=== PATIENT | female | born 1950 | race Caucasian/White ===

== ENCOUNTER → 2016-03-18 | Outpatient (CLI) | payer MEDICARE ==
--- NOTE | 2016-03-18 15:58 | CT ---
EXAM DESCRIPTION: CT ABDOMEN WITHOUT THEN WITH IV CONTRAST CLINICAL HISTORY: 65 y/o F, CIRRHOSIS COMPARISON: None TECHNIQUE: Prior to and after the administration of IV contrast thin slice axial images were acquired of the abdomen and pelvis. FINDINGS: Splenomegaly noted. The spleen measures 16 cm in diameter. The liver is shrunken with a nodular surface compatible with cirrhosis. Arterial phase images demonstrate no abnormal enhancement of the liver to suggest hepatocellular carcinoma. The bilateral adrenal glands, pancreas are unremarkable. Two 1 mm right lower pole renal stones. Negative for obstruction. Bilateral kidneys enhance symmetrically. There is a moderate amount of ascites noted. IVC filter in place. No aneurysm of the abdominal aorta. There are 2 anterior abdominal wall hernias seen. One contains only ascites. The more median of the 2 hernias contains both fluid, mesenteric fat and the lateral vessels from portal hypertension. IMPRESSION: There is a shrunken nodular liver compatible with cirrhosis. The spleen is enlarged with multiple collateral vessels. These findings are compatible with portal hypertension. There is a partial thrombus seen within the portal vein with thrombus extending into the SMV. This may be the cause of patient's ascites. Two small nonobstructing right lower pole renal stones. Electronically signed by: Bryant Kwon MD 03/18/2016 15:57
== END ==
LOC: LAB.O 10:23
PROVIDERS: ATTEND Internal Medicine Gastroenterology
DX: K74.69 Other cirrhosis of liver (principal); R16.1 Splenomegaly, not elsewhere classified; N20.0 Calculus of kidney

== ENCOUNTER → 2016-06-22 | Outpatient (CLI) | payer MEDICARE | LOC: GMAB 16:38 | PROVIDERS: ATTEND Family Medicine | DX: F44.89 Other dissociative and conversion disorders (principal); E11.40 Type 2 diabetes mellitus with diabetic neuropathy, unspecified; R53.82 Chronic fatigue, unspecified ==

== ENCOUNTER → 2017-06-21 | Outpatient (CLI) | payer MEDICARE | LOC: GMAB 10:23 | PROVIDERS: ATTEND Family Medicine | DX: R18.8 Other ascites (principal); E11.40 Type 2 diabetes mellitus with diabetic neuropathy, unspecified ==

== ENCOUNTER → 2017-07-04 | Outpatient (CLI) | payer MEDICARE ==
--- NOTE | 2017-07-04 13:36 | US ---
EXAM DESCRIPTION: Venous,Lower Extremity LT CLINICAL HISTORY: EDEMA COMPARISON: None Available. TECHNIQUE: Left lower extremity venous duplex FINDINGS: Doppler evaluation of the left lower extremity deep veins was performed. Normal color flow is seen in the common femoral, superficial femoral, profunda femoral and greater saphenous veins. Normal flow is seen in the popliteal vein and veins below the knee in the calf. Normal venous compressibility and flow augmentation. IMPRESSION: Negative for evidence of deep venous thrombosis on left lower extremity venous Doppler sonogram. Electronically signed by: Milton Crystal MD 07/04/2017 1:35 PM CDT
== END ==
LOC: GMAB 11:33
PROVIDERS: ATTEND Family Medicine
DX: M79.661 Pain in right lower leg (principal); R60.0 Localized edema

== ENCOUNTER 2017-07-11 15:49 | Emergency (ER) | payer MEDICARE ==
--- NOTE | 2017-07-11 16:23 | ED.PDOC ---
History of Present Illness - General Chief Complaint: Abdominal Pain Stated Complaint: abdominal pain Time Seen by Provider: 07/11/17 16:19 Source: patient Exam Limitations: no limitations - History of Present Illness Initial Comments: the patient is a 67-year-old female presenting to the emergency room with her family secondary to increasing swelling of her lower extremities as well as her abdomen. The patient does take significant daily doses of diuretics. She also goes to get ascites removed every 2 weeks in [place]. She takes lactulose to bring her ammonia down. She is not really complaining of any pain other than at the site of her last paracentesis. The pain is milder. She is not more altered than normal. She is not really more short of breath at rest than normal. She has not been having any fevers. No chest pain. No nausea or vomiting. No diarrheaaside from when she takeslactulose. blood pressure here today is a little bit lower than her baselinebut she does normally run low normal. Timing/Duration: unsure Severity: moderate Improving Factors: nothing Worsening Factors: nothing Associated Symptoms: denies symptoms Allergies/Adverse Reactions: Allergies NO KNOWN ALLERGY Allergy (Verified 01/08/15 20:25) Home Medications: Ambulatory Orders Aspirin Adult Low Dose 81 mg PO DAILY 01/08/15 Calcium 500 mg PO BID 01/08/15 Citalopram Hydrobromide 20 mg PO DAILY 01/08/15 Humalog 14 units SUBCU TID 01/08/15 Lantus Solostar 10 units SUBCU DAILY 01/08/15 Lasix 40 mg PO DAILY 01/08/15 Myrbetriq 25 mg PO DAILY 01/08/15 Nadolol 20 mg PO DAILY 01/08/15 Rifaximin 550 mg PO BID 01/08/15 Spironolactone 100 mg PO DAILY 01/08/15 Tolterodine LA 4 mg PO DAILY 01/08/15 Vitamin A 8,000 mg PO DAILY 01/08/15 Vitamin D-3 7,000 mg PO DAILY 01/08/15 Zinc Sulfate 220 mg PO DAILY 01/08/15 Review of Systems - Review of Systems Constitutional: States: malaise EENTM: States: no symptoms reported Respiratory: States: no symptoms reported Cardiology: States: no symptoms reported Gastrointestinal/Abdominal: States: abdominal pain - at site of previous paracentesis only. No generalized peritonitis palpable. Musculoskeletal: States: no symptoms reported Skin: States: no symptoms reported Neurological: States: no symptoms reported Endocrine: States: no symptoms reported Hematologic/Lymphatic: States: no symptoms reported All other Systems: No Change from Baseline Past Medical History (General) - Patient Medical History Hx Stroke: Yes Hx Cardiac Disorders: Yes Hx Diabetes: Yes Hx Renal Disease: Yes - Vaccination History Hx Tetanus, Diphtheria Vaccination: Yes Hx Influenza Vaccination: Yes Hx Pneumococcal Vaccination: No - Social History Hx Tobacco Use: No Hx Chewing Tobacco Use: No Hx Alcohol Use: No Hx Substance Use: No Hx Substance Use Treatment: No Hx Depression: No Hx Physical Abuse: No Hx Emotional Abuse: No Hx Suspected Abuse: No - Female History Patient : No Family Medical History - Family History Mother Family History: Unknown Physical Exam - Physical Exam General Appearance: Alert, Comfortable Eye Exam: bilateral normal Ears, Nose, Throat: hearing grossly normal, normal ENT inspection, normal pharynx Neck: full range of motion, supple Respiratory: lungs clear, normal breath sounds, no respiratory distress, no accessory muscle use Cardiovascular/Chest: normal peripheral pulses, no edema, bradycardia Peripheral Pulses: radial,right: 2+, radial,left: 2+, dorsalis pedis,right: 2+, dorsalis pedis,left: 2+ Gastrointestinal/Abdominal: non tender - see above. She does have significant ascites., soft Rectal Exam: deferred Back Exam: normal inspection, no CVA tenderness, no vertebral tenderness Extremity: normal range of motion, no calf tenderness, normal capillary refill, pedal edema - 3+ pedal edema bilaterally. No palpable cords. 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 She has become weaker. No fevers. No real generalized abdominal pain only discomfort at the previous paracentesis site. No significant jaundice. She has been urinating well according to her and family. She has been having bowel movements. Blood pressures are low normal here today but according to family that is what they normally are. Her primary care doctor had recently increased her diuretic but to no relief. Workup here today is concerning primarily for what appears to be acute renal failure in spite of significantly increasing anasarca. We have as of yet been unable to obtain a urinalysis to help rule out infection of the urinary tract as she missed the bed [place] the first time around. Blood culture has been performed. Also of concern is the elevated d-dimer in this patient. Abdominal paracentesis has not been performed for microbiology as we do not have microbiology in-house at this facility, and performing one simply for a culture may mess up the microbiology when she arrives at the receiving facility. She'll need to have a paracentesis diagnostic and likely therapeutic upon her arrival at the receiving facility. Additionally she will need additional imaging of the liver to help rule out portal vein thrombosis. She cannot have a CT scan with contrast given the acute renal failure and we do not have ultrasound here. The patient is being dosed empirically for the possibility of spontaneous bacterial peritonitis with a dose of cefepime. has graciously accepted the patient for transfer to [facility] in [place] for continued directed and appropriate evaluation and treatment. The patient will be sent by ambulance. The patient does have some mildly elevated potassium and is receiving a dose of Kayexalate as well. Ammonia level is a send out lab here and it is still pending. - Results/Orders Results/Orders: EKG shows sinus bradycardia rate of 52 bpm. She does have a supraventricular bigeminy pattern is slow. No acute ST segment changes concerning for ischemia. Normal QT interval. acute abdominal series shows no acute pathology. Laboratory Tests 07/11/17 07/11/17 07/11/17 14:42 14:42 16:31 WBC 3.1 L RBC 3.91 L Hgb 11.8 L Hct 35.3 L MCV 90.2 MCH 30.1 MCHC 33.4 RDW 15.3 H Plt Count 74 L MPV 10.1 Absolute Neuts (auto) 2.20 Absolute Lymphs (auto) 0.50 L Absolute Monos (auto) 0.30 Absolute Eos (auto) 0.10 Absolute Basos (auto) 0.00 Neutrophils % 71.5 Lymphocytes % 14.6 L Monocytes % 10.0 H Eosinophils % 3.5 Basophils % 0.4 PT 13.2 H INR 1.140 PTT (SP) 40.2 H D-Dimer, Quantitative 2347 H* Sodium 136 Potassium 6.1 H Chloride 101 Carbon Dioxide 28 Anion Gap 13.1 BUN 42 H Creatinine 2.68 H BUN/Creatinine Ratio 15.7 Random Glucose 150 H Serum Osmolality 285.3 Lactic Acid Calcium 9.9 Magnesium 2.3 Total Bilirubin 1.5 H AST 30 ALT 10 Alkaline Phosphatase 81 Creatine Kinase 46 CK-MB (CK-2) 0.8 CK-MB (CK-2) % Not Reportable Troponin I < 0.02 B-Natriuretic Peptide 249.0 H* Serum Total Protein 6.2 L Albumin 2.8 L Globulin 3.4 Albumin/Globulin Ratio 0.8 L 07/11/17 16:42 WBC RBC Hgb Hct MCV MCH MCHC RDW Plt Count MPV Absolute Neuts (auto) Absolute Lymphs (auto) Absolute Monos (auto) Absolute Eos (auto) Absolute Basos (auto) Neutrophils % Lymphocytes % Monocytes % Eosinophils % Basophils % PT INR PTT (SP) D-Dimer, Quantitative Sodium Potassium Chloride Carbon Dioxide Anion Gap BUN Creatinine BUN/Creatinine Ratio Random Glucose Serum Osmolality Lactic Acid 1.5 Calcium Magnesium Total Bilirubin AST ALT Alkaline Phosphatase Creatine Kinase CK-MB (CK-2) CK-MB (CK-2) % Troponin I B-Natriuretic Peptide Serum Total Protein Albumin Globulin Albumin/Globulin Ratio blood culture has been performed. Departure - Departure Clinical Impression: Anasarca, Hyperkalemia, End stage liver disease Acute renal failure Qualifiers: Acute renal failure type: unspecified Qualified Code(s): N17.9 - Acute kidney failure, unspecified Disposition: Transfer to Hospital Condition: Serious Referrals: Jose Al MD [Primary Care Provider] - 1-2 Weeks Home Medications: Ambulatory Orders Aspirin Adult Low Dose 81 mg PO DAILY 01/08/15 Calcium 500 mg PO BID 01/08/15 Citalopram Hydrobromide 20 mg PO DAILY 01/08/15 Humalog 14 units SUBCU TID 01/08/15 Lantus Solostar 10 units SUBCU DAILY 01/08/15 Lasix 40 mg PO DAILY 01/08/15 Myrbetriq 25 mg PO DAILY 01/08/15 Nadolol 20 mg PO DAILY 01/08/15 Rifaximin 550 mg PO BID 01/08/15 Spironolactone 100 mg PO DAILY 01/08/15 Tolterodine LA 4 mg PO DAILY 01/08/15 Vitamin A 8,000 mg PO DAILY 01/08/15 Vitamin D-3 7,000 mg PO DAILY 01/08/15 Zinc Sulfate 220 mg PO DAILY 01/08/15 Transfer to Outside Facility - Transfer Information Accepting Provider:: dr beasley Accepting Facility: [facility] Reason for Transfer: required specialist not available
--- NOTE | 2017-07-11 16:49 | RAD ---
EXAM DESCRIPTION: Abdomen Series CLINICAL HISTORY: edema. Cirrhosis COMPARISON: CT abdomen 03/18/2016. TECHNIQUE: AP radiographs of the abdomen supine upright. Upright AP portable chest. FINDINGS: Scar in the left base. No acute infiltrate and no pleural effusion. No free air under the hemidiaphragms. No significant air-fluid levels. Fecal material and gas in the distal colon with gas in the proximal colon. Minimal gas in the distal small bowel. No distended loops. Surgical clips right upper quadrant. Left hip total arthroplasty. Decreased bone density and spondylosis in the lumbar spine. IMPRESSION: No radiographic evidence of acute abdominal bowel obstruction. No free air or air-fluid levels. No acute process in the lung bases. Electronically signed by: Woody Mack MD 07/11/2017 4:47 PM CDT
[2017-07-11] MEDS ORDERED: SOD POLYSTYRENE SULFONATE 15 GM/60 ML BTTL PO ONE (17:24)
[2017-07-11] MEDS ORDERED: CEFEPIME 1 GM in SODIUM CHLORIDE 0.9% 50ML 50 ML IVPB ONE (18:22)
[2017-07-11] MEDS ORDERED: CEFEPIME 2 GM VIAL IVPB ONE ×2 (18:42→18:51)
[2017-07-11] MEDS ORDERED: SODIUM CHLORIDE 0.9% 50ML 50 ML ONE ×2 (18:42→18:52)
[2017-07-11 19:32] VITALS: BP 115/60; TEMP 98.4; O2SAT 96
== END 2017-07-11 19:31 | disposition short-term general hospital (02) ==
LOC: ER 15:49
DX: K72.90 Hepatic failure, unspecified without coma (principal); E87.5 Hyperkalemia; N17.9 Acute kidney failure, unspecified; R60.1 Generalized edema; E11.9 Type 2 diabetes mellitus without complications; Z86.73 Personal history of transient ischemic attack (TIA), and cerebral infarction without residual deficits; Z79.4 Long term (current) use of insulin; Z79.82 Long term (current) use of aspirin
CPT/HCPCS: 74019; 80053; 81001; 82550; 82553; 83605; 83735; 83880; 84484; 85025; 85379; 85610; 85730; 87040; 93005; A4216; J0692

== ENCOUNTER 2017-09-05 18:39 | Emergency (ER) | payer MEDICARE ==
--- NOTE | 2017-09-05 20:01 | ED.PDOC ---
History of Present Illness - General Chief Complaint: Abdominal Pain Stated Complaint: right sided abdominal pain Time Seen by Provider: 09/05/17 18:53 Source: patient Exam Limitations: no limitations - History of Present Illness Initial Comments: The patient is a 67-year-old female presenting to the emergency room secondary to right-sided abdominal pain that has been present for more than 2 weeks. The patient had a fall about 3 weeks ago and she has had the pain since. The pain is fairly localized to approximately a 2 in. area to the right upper anterior abdomen. There is no obvious bruising. It is tender to palpation but the areas immediately adjacent to it or not. She does have some bruising on her back from the fall as well but she is not so sore there. No nausea vomiting. No evidence of any infection. Her fluid status is baseline for her. No altered mental status. She is alert and pleasant and cooperative and in no immediate distress.no palpable mass. Timing/Duration: unsure Severity: mild Improving Factors: nothing Worsening Factors: movement Associated Symptoms: denies symptoms Allergies/Adverse Reactions: Allergies NO KNOWN ALLERGY Allergy (Verified 01/08/15 20:25) Home Medications: Ambulatory Orders Aspirin Adult Low Dose 81 mg PO DAILY 01/08/15 Calcium 500 mg PO BID 01/08/15 Citalopram Hydrobromide 20 mg PO DAILY 01/08/15 Humalog 14 units SUBCU TID 01/08/15 Lantus Solostar 10 units SUBCU DAILY 01/08/15 Lasix 40 mg PO DAILY 01/08/15 Myrbetriq 25 mg PO DAILY 01/08/15 Nadolol 20 mg PO DAILY 01/08/15 Rifaximin 550 mg PO BID 01/08/15 Spironolactone 100 mg PO DAILY 01/08/15 Tolterodine LA 4 mg PO DAILY 01/08/15 Vitamin A 8,000 mg PO DAILY 01/08/15 Vitamin D-3 7,000 mg PO DAILY 01/08/15 Zinc Sulfate 220 mg PO DAILY 01/08/15 Review of Systems - Review of Systems Constitutional: States: no symptoms reported EENTM: States: no symptoms reported Respiratory: States: no symptoms reported Cardiology: States: no symptoms reported Gastrointestinal/Abdominal: States: no symptoms reported, see HPI Genitourinary: States: no symptoms reported Musculoskeletal: States: see HPI Skin: States: see HPI Neurological: States: no symptoms reported Endocrine: States: no symptoms reported All other Systems: No Change from Baseline Past Medical History (General) - Patient Medical History Hx Stroke: Yes Hx Cardiac Disorders: Yes Hx Diabetes: Yes Hx Renal Disease: Yes - Vaccination History Hx Tetanus, Diphtheria Vaccination: Yes Hx Influenza Vaccination: Yes Hx Pneumococcal Vaccination: No - Social History Hx Tobacco Use: No Hx Chewing Tobacco Use: No Hx Alcohol Use: No Hx Substance Use: No Hx Substance Use Treatment: No Hx Depression: No Hx Physical Abuse: No Hx Emotional Abuse: No Hx Suspected Abuse: No - Female History Patient : No Family Medical History - Family History Mother Family History: Unknown Physical Exam - Physical Exam General Appearance: Alert, Comfortable, No apparent distress Eye Exam: bilateral normal Ears, Nose, Throat: hearing grossly normal, normal ENT inspection, normal pharynx Neck: full range of motion, supple, normal inspection Respiratory: lungs clear, normal breath sounds, no respiratory distress, no accessory muscle use Cardiovascular/Chest: normal peripheral pulses, regular rate, rhythm Peripheral Pulses: radial,right: 2+, radial,left: 2+, dorsalis pedis,right: 2+, dorsalis pedis,left: 2+ Gastrointestinal/Abdominal: soft, other - see history of present illness. Mild amount of ascites is obviously present. Rectal Exam: deferred Back Exam: no CVA tenderness, other - bruising from the fall. 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 This is most likely a muscle strain related to her recent fall. Laboratory work is reassuring. The patient looks good clinically. 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 ER warnings were given. - Results/Orders Results/Orders: Laboratory Tests 09/05/17 09/05/17 09/05/17 19:17 19:17 19:17 WBC 1.7 L* RBC 3.26 L Hgb 9.7 L Hct 29.1 L MCV 89.3 MCH 29.7 MCHC 33.5 RDW 17.2 H Plt Count 66 L MPV 8.2 Absolute Neuts (auto) 1.10 L Absolute Lymphs (auto) 0.30 L Absolute Monos (auto) 0.30 Absolute Eos (auto) 0.10 Absolute Basos (auto) 0.00 Neutrophils % 64.7 Lymphocytes % 15.7 L Monocytes % 15.4 H Eosinophils % 3.7 Basophils % 0.5 Sodium 136 Potassium 4.3 Chloride 102 Carbon Dioxide 26 Anion Gap 12.3 BUN 26 H Creatinine 1.31 H BUN/Creatinine Ratio 19.8 Random Glucose 81 Serum Osmolality 275.7 Lactic Acid 1.8 Calcium 9.5 Total Bilirubin 1.9 H AST 34 ALT 14 Alkaline Phosphatase 75 Serum Total Protein 6.7 Albumin 3.5 Globulin 3.2 Albumin/Globulin Ratio 1.1 Amylase 34 Lipase 20 L Urine Color Urine Appearance Urine pH Ur Specific [place] Urine Protein Urine Glucose (UA) Urine Ketones Urine Blood Urine Nitrite Urine Bilirubin Urine Urobilinogen Ur Leukocyte Esterase Urine RBC Urine WBC Ur Epithelial Cells Amorphous Sediment Urine Bacteria 09/05/17 19:26 WBC RBC Hgb Hct MCV MCH MCHC RDW Plt Count MPV Absolute Neuts (auto) Absolute Lymphs (auto) Absolute Monos (auto) Absolute Eos (auto) Absolute Basos (auto) Neutrophils % Lymphocytes % Monocytes % Eosinophils % Basophils % Sodium Potassium Chloride Carbon Dioxide Anion Gap BUN Creatinine BUN/Creatinine Ratio Random Glucose Serum Osmolality Lactic Acid Calcium Total Bilirubin AST ALT Alkaline Phosphatase Serum Total Protein Albumin Globulin Albumin/Globulin Ratio Amylase Lipase Urine Color Yellow Urine Appearance Clear Urine pH 5.0 Ur Specific [place] 1.020 Urine Protein Negative Urine Glucose (UA) Negative Urine Ketones Negative Urine Blood Negative Urine Nitrite Negative Urine Bilirubin Negative Urine Urobilinogen 0.2 Ur Leukocyte Esterase Negative Urine RBC 0-1 Urine WBC 0-1 Ur Epithelial Cells 1-3 Amorphous Sediment 1+ Urine Bacteria 0 Departure - Departure Clinical Impression: Abdominal wall strain Qualifiers: Encounter type: initial encounter Qualified Code(s): S39.011A - Strain of muscle, fascia and tendon of abdomen, initial encounter Disposition: Discharge to Home or Self Care Departure Forms: ED Discharge - Pt. Copy, Patient Portal Self Enrollment Instructions: DI for Abdominal Pain-Adult Diet: regular diet Activity: increase activity as tolerated Referrals: KAIT LORENZO MD [Primary Care Provider] - 1-2 Weeks Home Medications: Ambulatory Orders Aspirin Adult Low Dose 81 mg PO DAILY 01/08/15 Calcium 500 mg PO BID 01/08/15 Citalopram Hydrobromide 20 mg PO DAILY 01/08/15 Humalog 14 units SUBCU TID 01/08/15 Lantus Solostar 10 units SUBCU DAILY 01/08/15 Lasix 40 mg PO DAILY 01/08/15 Myrbetriq 25 mg PO DAILY 01/08/15 Nadolol 20 mg PO DAILY 01/08/15 Rifaximin 550 mg PO BID 01/08/15 Spironolactone 100 mg PO DAILY 01/08/15 Tolterodine LA 4 mg PO DAILY 01/08/15 Vitamin A 8,000 mg PO DAILY 01/08/15 Vitamin D-3 7,000 mg PO DAILY 01/08/15 Zinc Sulfate 220 mg PO DAILY 01/08/15 Additional Instructions: the patient is a 67-year-old female presenting to the emergency room secondary to persistent mild right anterior upper abdominal wall pain present for the last couple of weeks. This is most likely a muscle strain related to her recent fall. Laboratory work is reassuring. The patient looks good clinically. 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 ER warnings were given.
[2017-09-05 20:23] VITALS: BP 124/73; TEMP 97.4; O2SAT 95
== END 2017-09-05 20:23 | disposition home or self-care (01) ==
LOC: ER 18:39
DX: S39.011A Strain of muscle, fascia and tendon of abdomen, initial encounter (principal); E11.9 Type 2 diabetes mellitus without complications; Z86.73 Personal history of transient ischemic attack (TIA), and cerebral infarction without residual deficits; N28.9 Disorder of kidney and ureter, unspecified; Z79.4 Long term (current) use of insulin; Z79.82 Long term (current) use of aspirin; Z79.899 Other long term (current) drug therapy

== ENCOUNTER 2017-09-15 23:58 | Emergency (ER) | payer MEDICARE ==
[2017-09-16 00:26] VITALS: TEMP 98.6; O2SAT 98
[2017-09-16] MEDS ORDERED: traMADol HCL 50 MG TAB PO ONE ×2 (00:27→00:29)
[2017-09-16] MEDS ORDERED: FUROSEMIDE 40 MG TAB PO ONE ×2 (00:27→00:30)
--- NOTE | 2017-09-16 00:33 | ED.PDOC ---
History of Present Illness - General Chief Complaint: GI Problem Stated Complaint: upper abd pain Time Seen by Provider: 09/16/17 00:29 Information Source: patient Exam Limitations: no limitations - History of Present Illness Initial Comments: SHE HAS ASCITES AND FEELS SHORT OF BREATH. USUALLY GOES TO [facility] TO HAVE THE ASCITES DRAINED EVERY TWO WEEKS, SHE IS DUE TUESDAY BUT NOW FEELS TIGHT. Abdominal Pain Onset Location: generalized abdomen Pain Radiation: no radiation Quality: moderate Timing/Duration: 24 hours Improving Factors: nothing Worsening Factors: nothing Associated Symptoms: denies symptoms Review of Systems - Review of Systems Constitutional: States: no symptoms reported EENTM: States: no symptoms reported Respiratory: States: no symptoms reported Cardiology: States: no symptoms reported Gastrointestinal/Abdominal: States: abdominal pain Genitourinary: States: no symptoms reported Musculoskeletal: States: no symptoms reported Skin: States: no symptoms reported Neurological: States: no symptoms reported Endocrine: States: no symptoms reported Past Medical History (General) - Patient Medical History Hx Stroke: Yes - TIAs Hx Cardiac Disorders: Yes - stents placed Hx Hypertension: Yes Hx Diabetes: Yes Hx Renal Disease: Yes Surgical History: cholecystectomy, Hysterectomy, other - Vaccination History Hx Tetanus, Diphtheria Vaccination: Yes Hx Influenza Vaccination: Yes Hx Pneumococcal Vaccination: Yes - Social History Hx Tobacco Use: No Hx Chewing Tobacco Use: No Hx Alcohol Use: No Hx Substance Use: No Hx Substance Use Treatment: No Hx Depression: No Hx Physical Abuse: No Hx Emotional Abuse: No Hx Suspected Abuse: No - Female History Patient : No - Triage Comment ED Triage Comment: Pt appears short of breath, abd distended and tight. Pt is uncomfortable. Family Medical History - Family History Mother Family History: Unknown Living Status: Hx Family Cancer: Yes Physical Exam - Physical Exam General Appearance: Alert, Well Groomed Eyes, Ears, Nose, Throat Exam: PERRL/EOMI, pharynx normal Neck: non-tender, supple Respiratory: chest non-tender, lungs clear, normal breath sounds Cardiovascular/Chest: normal peripheral pulses Gastrointestinal/Abdominal: normal bowel sounds, other - TIGHT ASCITES Rectal Exam: deferred Back Exam: normal inspection Neurologic: alert, oriented x 3 Skin Exam: normal color Lymphatic: no adenopathy Departure - Departure Clinical Impression: Ascites Qualifiers: Ascites type: due to alcoholic hepatitis Qualified Code(s): K70.11 - Alcoholic hepatitis with ascites Abdominal pain Qualifiers: Abdominal location: generalized Qualified Code(s): R10.84 - Generalized abdominal pain Time of Disposition: 00:34 Disposition: Discharge to Home or Self Care Condition: Fair Departure Forms: ED Discharge - Pt. Copy, Patient Portal Self Enrollment Instructions: DI for Abdominal Pain-Adult Referrals: KAIT LORENZO MD [Primary Care Provider] - 1-2 Weeks Home Medications: Ambulatory Orders Aspirin Adult Low Dose 81 mg PO DAILY 01/08/15 Calcium 500 mg PO BID 01/08/15 Citalopram Hydrobromide 20 mg PO DAILY 01/08/15 Humalog 14 units SUBCU TID 01/08/15 Lantus Solostar 10 units SUBCU DAILY 01/08/15 Lasix 40 mg PO DAILY 01/08/15 Myrbetriq 25 mg PO DAILY 01/08/15 Nadolol 20 mg PO DAILY 01/08/15 Rifaximin 550 mg PO BID 01/08/15 Spironolactone 100 mg PO DAILY 01/08/15 Tolterodine LA 4 mg PO DAILY 01/08/15 Vitamin A 8,000 mg PO DAILY 01/08/15 Vitamin D-3 7,000 mg PO DAILY 01/08/15 Zinc Sulfate 220 mg PO DAILY 01/08/15 Additional Instructions: FOLLOW IN [facility] IN THE AM.
[2017-09-16 00:48] VITALS: BP 125/59
== END 2017-09-16 00:48 | disposition home or self-care (01) ==
LOC: ER 23:58
DX: K70.11 Alcoholic hepatitis with ascites (principal); R10.84 Generalized abdominal pain; I10 Essential (primary) hypertension; E11.9 Type 2 diabetes mellitus without complications; Z86.73 Personal history of transient ischemic attack (TIA), and cerebral infarction without residual deficits; Z79.82 Long term (current) use of aspirin; Z79.4 Long term (current) use of insulin

== ENCOUNTER → 2017-09-19 | Outpatient (CLI) | payer MEDICARE | LOC: GRHH 11:17 | PROVIDERS: ATTEND Internal Medicine Gastroenterology | DX: R60.0 Localized edema (principal); I10 Essential (primary) hypertension; K72.90 Hepatic failure, unspecified without coma; R18.8 Other ascites ==

== ENCOUNTER 2017-09-29 16:53 | Emergency (ER) | payer MEDICARE ==
[2017-09-29 17:23] VITALS: TEMP 97.7
--- NOTE | 2017-09-29 17:33 | ED.PDOC ---
History of Present Illness - General Chief Complaint: General Stated Complaint: weakness, edema Time Seen by Provider: 09/29/17 17:13 Source: patient, family Exam Limitations: no limitations - History of Present Illness Initial Comments: patient comes in today for worsening of her ascites over the past 24 hours. 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 Normally she has paracentesis performed every other week with a decrease of about 2-3 pounds after the procedure. The last 24 hours they've noted that she has gotten rapidly more swollen and she is up 11 pounds from her last appointment. Patient has increased abdominal discomfort with no overt pain. She's had some chills but no fever and is still making bowel movements. She's had some nausea and vomiting 2 days ago but none currently. No altered LOC or vision change. Patient is currently on the transplant list and is undergoing workup with her tripe washer in [place] as well as the transplant team. Primary concern from her family is the sudden worsening over the last 24 hours. Timing/Duration: 24 hours Severity: severe Improving Factors: nothing Worsening Factors: nothing Associated Symptoms: denies symptoms Allergies/Adverse Reactions: Allergies NO KNOWN ALLERGY Allergy (Verified 01/08/15 20:25) Home Medications: Ambulatory Orders Aspirin Adult Low Dose 81 mg PO DAILY 01/08/15 Calcium 500 mg PO BID 01/08/15 Citalopram Hydrobromide 20 mg PO DAILY 01/08/15 Humalog 14 units SUBCU TID 01/08/15 Lantus Solostar 10 units SUBCU DAILY 01/08/15 Lasix 40 mg PO DAILY 01/08/15 Myrbetriq 25 mg PO DAILY 01/08/15 Nadolol 20 mg PO DAILY 01/08/15 Rifaximin 550 mg PO BID 01/08/15 Spironolactone 50 mg PO DAILY 01/08/15 Tolterodine LA 4 mg PO DAILY 01/08/15 Vitamin A 8,000 mg PO DAILY 01/08/15 Vitamin D-3 5,000 mg PO DAILY 01/08/15 Zinc Sulfate 220 mg PO DAILY 01/08/15 Gabapentin [Neurontin] 300 mg PO DAILY 09/16/17 Lactulose Syrup [Chronulac] 30 ml PO DAILY 09/16/17 Midodrine HCl [Midodrine HCl] 5 mg PO TID 09/16/17 Temazepam 30 mg PO BEDTIME 09/16/17 Review of Systems - Review of Systems Constitutional: States: chills, weakness. Denies: diaphoresis, fever EENTM: Denies: blurred vision, throat pain Respiratory: States: no symptoms reported. Denies: orthopnea, short of breath, wheezing Cardiology: States: no symptoms reported. Denies: chest pain, edema, palpitations Gastrointestinal/Abdominal: States: see HPI Genitourinary: States: no symptoms reported. Denies: dysuria Musculoskeletal: States: no symptoms reported Skin: States: no symptoms reported Neurological: States: no symptoms reported Endocrine: States: no symptoms reported Hematologic/Lymphatic: States: no symptoms reported Past Medical History (General) - Patient Medical History Hx Stroke: Yes - TIAs Hx Cardiac Disorders: Yes - stents placed Hx Hypertension: Yes Hx Diabetes: Yes Hx Renal Disease: Yes - Vaccination History Hx Tetanus, Diphtheria Vaccination: Yes Hx Influenza Vaccination: Yes Hx Pneumococcal Vaccination: Yes - Social History Hx Tobacco Use: No Hx Chewing Tobacco Use: No Hx Alcohol Use: No Hx Substance Use: No Hx Substance Use Treatment: No Hx Depression: No Hx Physical Abuse: No Hx Emotional Abuse: No Hx Suspected Abuse: No - Female History Patient : No Family Medical History - Family History Mother Family History: Unknown Living Status: Hx Family Cancer: Yes Physical Exam - Physical Exam General Appearance: Frail, Ill Appearing Eye Exam: bilateral normal Ears, Nose, Throat: hearing grossly normal, normal ENT inspection, normal pharynx Neck: non-tender, full range of motion, supple Respiratory: chest non-tender, lungs clear, normal breath sounds, no respiratory distress Cardiovascular/Chest: normal peripheral pulses, regular rate, rhythm, no edema, no gallop, no JVD, no murmur Peripheral Pulses: radial,right: 2+, radial,left: 2+ Gastrointestinal/Abdominal: normal bowel sounds, distended, other - tight with hypoactive BS and tympamy Extremity: swelling - 3+ pitting edema to the thigh Neurologic: alert, oriented x 3 Progress - Progress Progress: 09/29/17 18:35 Laboratory Results WBC 1.8 K/mm3 (4.8-10.8) L* 09/29/17 17:47 RBC 3.81 M/mm3 (4.20-5.40) L 09/29/17 17:47 Hgb 11.0 gm/dL (12.0-16.0) L 09/29/17 17:47 Hct 34.2 % (36.0-47.0) L 09/29/17 17:47 MCV 89.6 fl (81.0-99.0) 09/29/17 17:47 MCH 28.8 pg (27.0-31.0) 09/29/17 17:47 MCHC 32.2 g/dL (33.0-37.0) L 09/29/17 17:47 RDW 15.7 % (11.5-14.5) H 09/29/17 17:47 Plt Count 72 K/mm3 (130-400) L 09/29/17 17:47 MPV 8.4 fl (7.40-10.4) 09/29/17 17:47 Absolute Neuts (auto) Not Reportable 09/29/17 17:47 Absolute Lymphs (auto) Not Reportable 09/29/17 17:47 Absolute Monos (auto) Not Reportable 09/29/17 17:47 Absolute Eos (auto) Not Reportable 09/29/17 17:47 Neutrophils % Not Reportable 09/29/17 17:47 Neutrophils % (Manual) 70.0 % (42.0-78.0) 09/29/17 17:47 Lymphocytes % Not Reportable 09/29/17 17:47 Lymphocytes % (Manual) 24.0 % 09/29/17 17:47 Monocytes % Not Reportable 09/29/17 17:47 Monocytes % (Manual) 4.0 % 09/29/17 17:47 Eosinophils % Not Reportable 09/29/17 17:47 Basophils % Not Reportable 18 17:47 Band Neutrophils 2.0 % (0-2) 09/29/17 17:47 Platelet Estimate Normal (NORMAL) 09/29/17 17:47 Normal RBC Morphology Normal rbc morph 09/29/17 17:47 PT 12.0 SECONDS (9.3-10.7) H 09/29/17 17:47 INR 1.20 (0.9-1.15) H 09/29/17 17:47 PTT (SP) 28.1 SECONDS (21.8-31.6) 09/29/17 17:47 Sodium 141 mmol/L (135-145) 09/29/17 17:47 Potassium 4.3 mmol/L (3.6-5.0) 09/29/17 17:47 Chloride 102 mmol/L (101-111) 09/29/17 17:47 Carbon Dioxide 30 mmol/L (21-31) 09/29/17 17:47 Anion Gap 13.3 (12-18) 09/29/17 17:47 BUN 31 mg/dL (7-18) H 09/29/17 17:47 Creatinine 1.29 mg/dL (0.6-1.3) 09/29/17 17:47 BUN/Creatinine Ratio 24.0 (10-20) H 09/29/17 17:47 Random Glucose 174 mg/dL (70-105) H 09/29/17 17:47 Serum Osmolality 292.0 mOsm/L (275-295) 09/29/17 17:47 Calcium 9.9 mg/dL (8.4-10.2) 09/29/17 17:47 Total Bilirubin 1.8 mg/dL (0.2-1.0) H 09/29/17 17:47 AST 50 IU/L (10-42) H 09/29/17 17:47 ALT 15 IU/L (10-60) 09/29/17 17:47 Alkaline Phosphatase 98 IU/L (42-121) 09/29/17 17:47 Serum Total Protein 6.9 gm/dL (6.4-8.2) 09/29/17 17:47 Albumin 3.4 g/dl (3.2-5.5) 09/29/17 17:47 Globulin 3.5 gm/dL (2.3-3.5) 09/29/17 17:47 Albumin/Globulin Ratio 1.0 (1.1-1.9) L 09/29/17 17:47 09/29/17 19:21 Discussed with employee relations assistant GI Dr. Kely Ortiz and they have asked us to increase her spironolactone to BID and perform paracentesis here in the ER. I agree this is appropriate as GI has been contacted and will set up outpatient follow up closely. Spoke to the patient and she feels most of her discomfort is from the swelling in her legs and the paracentesis would not help that. She does not want to have procedure done in ER and will wait and see her GI. Departure - Departure Clinical Impression: Cirrhosis Qualifiers: Hepatic cirrhosis type: unspecified hepatic cirrhosis Ascites presence: with ascites Qualified Code(s): K74.60 - Unspecified cirrhosis of liver; R18.8 - Other ascites; R18.8 - Other ascites Disposition: Discharge to Home or Self Care Condition: Fair Departure Forms: ED Discharge - Pt. Copy, Patient Portal Self Enrollment Referrals: KAIT LORENZO MD [Primary Care Provider] - 1-2 Weeks Home Medications: Ambulatory Orders Aspirin Adult Low Dose 81 mg PO DAILY 01/08/15 Calcium 500 mg PO BID 01/08/15 Citalopram Hydrobromide 20 mg PO DAILY 01/08/15 Humalog 14 units SUBCU TID 01/08/15 Lantus Solostar 10 units SUBCU DAILY 01/08/15 Lasix 40 mg PO DAILY 01/08/15 Myrbetriq 25 mg PO DAILY 01/08/15 Nadolol 20 mg PO DAILY 01/08/15 Rifaximin 550 mg PO BID 01/08/15 Spironolactone 50 mg PO DAILY 01/08/15 Tolterodine LA 4 mg PO DAILY 01/08/15 Vitamin A 8,000 mg PO DAILY 01/08/15 Vitamin D-3 5,000 mg PO DAILY 01/08/15 Zinc Sulfate 220 mg PO DAILY 01/08/15 Gabapentin [Neurontin] 300 mg PO DAILY 09/16/17 Lactulose Syrup [Chronulac] 30 ml PO DAILY 09/16/17 Midodrine HCl [Midodrine HCl] 5 mg PO TID 09/16/17 Temazepam 30 mg PO BEDTIME 09/16/17 Additional Instructions: GI should contact patient in A.M. Increase her aldactone to BID. Return to ER for shortness of breath, worsening of symptoms.
[2017-09-29 19:48] VITALS: BP 127/74; O2SAT 97
== END 2017-09-29 19:45 | disposition home or self-care (01) ==
LOC: ER 16:53
DX: K74.60 Unspecified cirrhosis of liver (principal); R18.8 Other ascites; R60.0 Localized edema; E11.22 Type 2 diabetes mellitus with diabetic chronic kidney disease; I12.9 Hypertensive chronic kidney disease with stage 1 through stage 4 chronic kidney disease, or unspecified chronic kidney disease; N18.9 Chronic kidney disease, unspecified; Z95.5 Presence of coronary angioplasty implant and graft; Z86.73 Personal history of transient ischemic attack (TIA), and cerebral infarction without residual deficits; Z79.4 Long term (current) use of insulin; Z79.899 Other long term (current) drug therapy; Z79.82 Long term (current) use of aspirin

== ENCOUNTER → 2017-11-11 | Outpatient (CLI) | payer MEDICARE | LOC: GRHH 11:25 | PROVIDERS: ATTEND Internal Medicine Gastroenterology | DX: K72.90 Hepatic failure, unspecified without coma (principal); K75.81 Nonalcoholic steatohepatitis (NASH); K74.60 Unspecified cirrhosis of liver ==

== ENCOUNTER → 2017-11-15 | Outpatient (CLI) | payer MEDICARE | LOC: GRHH 12:07 | PROVIDERS: ATTEND Internal Medicine Nephrology | DX: N17.9 Acute kidney failure, unspecified (principal); K74.69 Other cirrhosis of liver ==

== ENCOUNTER 2017-11-29 15:35 | Inpatient (IN) | payer MEDICARE ==
--- NOTE | 2017-11-29 17:30 | CT ---
EXAM DESCRIPTION: Abdomen/Pelvis w/wo Contrast CLINICAL HISTORY:67 years Female, NAUSEA WITH VOMITING, CIRRHOSIS Comparison: March 18, 2016 TECHNIQUE: Contiguous axial images of the abdomen and pelvis were obtained followed by reconstruction images. Examination performed with and without contrast This exam was performed according to our departmental dose-optimization program, which includes automated exposure control, adjustment of the mA and/or kV according to patient size and/or use of iterative reconstruction technique. FINDINGS: Lung bases are clear. Heart size is within normal limits. Cirrhotic liver morphology. Subcentimeter hypodensity right hepatic lobe. Nonocclusive thrombus involving the portal vein and superior mesenteric vein. Splenomegaly. Pancreas, adrenal glands within normal limits. Cholecystectomy. 3 mm calculi within the right renal midportion. Left kidney within normal limits. No hydronephrosis. Limited evaluation of the bladder due to streak artifact from left hip arthroplasty otherwise no gross abnormality of the bladder. Infrarenal IVC filter noted. Diffuse atherosclerotic vascular calcifications. Large volume ascites. Stomach normal limits. Scattered prominent loops of small bowel measuring up to 3 cm with distal decompressed bowel loops consistent with small bowel obstruction. Transition is well seen but may be within the lower mid abdomen. There is a moderate amount of colonic stool. There is mild thickening of the ascending colon which may be secondary to portable opacity versus infectious inflammatory process. Lumbar spine changes with chronic compression deformity of L1. Left hip arthroplasty in place. IMPRESSION: * Findings most consistent with small bowel obstruction with transition not well seen but likely within the lower mid abdomen. * Nonocclusive thrombus involving the portal vein and superior mesenteric vein. * Bowel wall thickening involving the ascending colon which may secondary to portal colopathy versus infectious or inflammatory etiology. * Cirrhosis with splenomegaly, abdominal varices and Large volume ascites. * Indeterminate subcentimeter lesion within the right hepatic lobe. Further evaluation with MR liver protocol recommended. * Right nonobstructive nephrolithiasis. Electronically signed by: Kwame Salinas MD 11/29/2017 5:28 PM CDT
--- NOTE | 2017-11-29 18:44 | HP ---
SUPERVISING PHYSICIAN: Gwyn Alvares M.D. CHIEF COMPLAINT: Nausea and vomiting with abdominal pain. HISTORY OF PRESENT ILLNESS: This is a 67 year-old female with a longstanding history of hepatitis C resulting in cirrhotic liver disease, who has had about a week's worth of nausea with progressed to nausea and vomiting. She has also experienced some lower abdominal pain as well. She has a paracentesis done on nearly a weekly basis and had 5 liters taken off yesterday. But due to the nausea and vomiting she went to her primary care physician's office today and he evaluated her and did some labs as well as CT scan of the abdomen and pelvis. Labs showed a white count of 3.1, hemoglobin 12.4, platelet count 82, 000. There is no left shift. Chemistries area pretty much unremarkable but she did have a bilirubin of 2.9. It is chronically elevated due to the cirrhosis. CT scan of the abdomen and pelvis showed that she had a small bowel obstruction, nonocclusive portal vein thrombosis as well as ascending colitis. For these reasons, Dr. Alvares called me and wanted to directly admit the patient. The patient came up to the hospital and is experiencing some abdominal discomfort. She is not actively vomiting. I spoke with the patient' s who states that normally when she gets sick she does go down to the [place] area to her specialist. Her specialist is Dr. Bryant who is a GI/liver specialist in the [facility]. I did call the office and spoke with the coordinator and eventually Dr. Ortiz who is mainframe applications developer for Dr. Bryant. PAST MEDICAL HISTORY: 1. Cirrhotic liver disease secondary to hepatitis C. 2. Hyperlipidemia. 3. Hypertension. 4. Gastroesophageal reflux disease. 5. Type 2 diabetes mellitus. 6. Chronic thrombocytopenia secondary to cirrhosis. PAST SURGICAL HISTORY: 1. Hysterectomy. 2. Exploratory laparoscopy with colon resection. CURRENT MEDICATIONS: 1. Spironolactone 50 mg p.o. b.i.d. 2. Citalopram 20 mg p.o. daily, 3. Restoril 30 mg 1 to 2 tablets by mouth at bedtime. 4. Lantus 10 units subcutaneous daily. 5. Zinc 220 mg 1 cap p.o. daily. 6. Lactulose 30 mL p.o. t.i.d. 7. Midodrine 5 mg 1 tablet by mouth t.i.d. 8. Vitamin D3 5000 iu every day. 9. Tolterodine 4 mg 1 tab by mouth daily. 10. Tramadol 50 mg every 6 hours p.r.n. for pain. 11. Xifaxan 550 mg b.i.d. 12. Gabapentin 300 mg p.o. t.i.d. 13. Aspirin 81 mg p.o. daily. 14. Lasix 40 mg p.o. daily. 15. Humalog 14 units t.i.d. ALLERGIES: NO KNOWN DRUG ALLERGIES. FAMILY HISTORY: She states it is negative. SOCIAL HISTORY: No drinking. No smoking. No illicit drugs. REVIEW OF SYSTEMS: CONSTITUTIONAL: No fever. No chills. No recent weight loss or weight gain. HEENT: No headaches, vision changes, ear pain, nasal congestion or throat pain. RESPIRATORY: No cough, hemoptysis or pleuritic chest pain. CARDIOVASCULAR: No chest pain, palpitations or peripheral edema. GASTROINTESTINAL: Positive for nausea and vomiting and abdominal pain. GENITOURINARY: No dysuria, frequency or flank pain. HEMATOLOGIC: Positive for easy bruising. No transfusion reaction. MUSCULOSKELETAL: No joint pains, joint swelling or muscle cramps. ENDOCRINE: No polydipsia, polyuria or polyphagia. No heat or cold intolerance. NEUROLOGIC: No paresthesia, syncope or seizures. PHYSICAL EXAMINATION: VITAL SIGNS: Blood pressure 106/62, heart rate 104, respiratory rate 22, temperature is afebrile, O2 saturations are 95%. GENERAL: Ms. Suarez is a chronically ill in appearance 67 year-old female who is in no severe distress at this time. HEENT: Head is normocephalic and atraumatic. Eyes: Pupils are equal and reactive. Nose: No drainage. Throat: Moist mucosa. NECK: Supple. Midline trachea. No jugular venous distention. CHEST: Symmetrical with equal rise and fall of the chest with inspiration and expiration. Lung sounds are diminished in the bases but otherwise clear to auscultation bilaterally. CARDIOVASCULAR: The patient has a regular rate and rhythm with a normal S1 and S2. She is tachycardic. ABDOMEN: Distended. Acidic fluid is noted. Bowel sounds are distant and hypoactive. GENITOURINARY: Exam is deferred. EXTREMITIES: Lower extremities have no significant edema, 2+ pulses. Capillary refill is less than 2 seconds. NEUROLOGIC: The patient is alert and oriented. Moves all extremities. Extraocular movements are intact. LABORATORY: Labs and films are as discussed above in the History of Present Illness. ASSESSMENT: 1. Small bowel obstruction. 2. Nonocclusive portal vein thrombosis. 3. Ascending colitis. 4. History of hepatitis C with resulting cirrhotic liver disease. 5. Thrombocytopenia secondary to cirrhosis. 6. Diabetes mellitus type 2. PLAN: At this time I have contacted the [place] physician that she consults with on a regular basis. Dr. Ortiz is mainframe applications developer and I have discussed the case with her. She has agreed to accept the patient into [facility]. I am facilitating that transfer at this time. Meanwhile I have ordered pain control measures as well as IV fluids due to the fact she has been having nausea and vomiting for quite some time now. I have discussed the case fully with her . They are in agreement with the transfer, so we will defer to the [facility] physicians for further plan of care at this time. #[id number] [facility]
[2017-11-29] MEDS ORDERED: ONDANSETRON INJ 4 MG/2 ML VIAL IV PRN (19:05)
[2017-11-29] MEDS ORDERED: MORPHINE SULFATE INJ 10 MG/ML VIAL IV PRN (19:05)
[2017-11-29] MEDS ORDERED: SODIUM CHLORIDE 0.9% 1000ML 1,000 ML IVS PRN (19:05)
[2017-11-29] MEDS ORDERED: SODIUM CHLORIDE 0.9% (FLUSH) 10 ML SYG IV PRN (19:05)
[2017-11-29] MEDS ORDERED: IV SET AND CAP CHANGE INJ INJ SCH (19:30)
[2017-11-29] MEDS ORDERED: MORPHINE SULFATE INJ 10 MG/ML VIAL ONE (20:20)
[2017-11-29] MEDS ORDERED: SODIUM CHLORIDE 0.9% 1000ML 1,000 ML ONE (20:20)
[2017-11-29 20:34] VITALS: O2SAT 97
[2017-11-29 23:03] VITALS: BP 121/74; TEMP 97.6
== END 2017-11-29 21:25 | disposition short-term general hospital (02) | DRG 388 ==
LOC: LAB.O 15:35 → MS 18:42
PROVIDERS: ADMIT Nurse Practitioner; ATTEND Nurse Practitioner
PROC: BW2100Z Computerized Tomography (CT Scan) of Abdomen and Pelvis using High Osmolar Contrast, Unenhanced and Enhanced (ICD-10-PCS; principal; 2017-11-29)
DX: K56.609 Unspecified intestinal obstruction, unspecified as to partial versus complete obstruction (principal); I81 Portal vein thrombosis; K74.60 Unspecified cirrhosis of liver; B19.20 Unspecified viral hepatitis C without hepatic coma; K52.9 Noninfective gastroenteritis and colitis, unspecified; D69.59 Other secondary thrombocytopenia; E78.5 Hyperlipidemia, unspecified; I10 Essential (primary) hypertension; K21.9 Gastro-esophageal reflux disease without esophagitis; E11.9 Type 2 diabetes mellitus without complications; Z79.4 Long term (current) use of insulin; Z79.891 Long term (current) use of opiate analgesic; Z79.82 Long term (current) use of aspirin

== ENCOUNTER 2017-12-21 17:34 | Emergency (ER) | payer MEDICARE ==
[2017-12-21 17:49] VITALS: BP 129/77; TEMP 97.4; O2SAT 100
[2017-12-21] MEDS ORDERED: FUROSEMIDE 40 MG TAB PO ONE (18:00)
--- NOTE | 2017-12-21 18:03 | ED.PDOC ---
History of Present Illness - General Chief Complaint: GI Problem Stated Complaint: abdominal distention Time Seen by Provider: 12/21/17 17:42 Source: patient, family Exam Limitations: no limitations - History of Present Illness Initial Comments: the patient is a pleasant 67-year-old female presenting [facility] the [facility] being concerned that her abdomen was swelling a little bit more. The patient is not in any pain. She is not having any fevers. She is not short of breath. she does have end-stage liver disease and she does receive paracentesis once a week essentially scheduled at this point. She is on 2 diuretics. Again she is not in any distress. Timing/Duration: unsure Severity: mild Improving Factors: nothing Worsening Factors: nothing Associated Symptoms: denies symptoms Allergies/Adverse Reactions: Allergies NO KNOWN ALLERGY Allergy (Verified 01/08/15 20:25) Review of Systems - Review of Systems Constitutional: States: no symptoms reported EENTM: States: no symptoms reported Respiratory: States: no symptoms reported Cardiology: States: no symptoms reported Gastrointestinal/Abdominal: States: see HPI Genitourinary: States: no symptoms reported Musculoskeletal: States: no symptoms reported Skin: States: see HPI - she does have the start of caput medusa Neurological: States: no symptoms reported Endocrine: States: no symptoms reported All other Systems: No Change from Baseline Past Medical History (General) - Patient Medical History Hx Seizures: No Hx Stroke: Yes - TIA Hx Asthma: No Hx of COPD: No Hx Cardiac Disorders: Yes - stents placed Hx Congestive Heart Failure: No Hx Pacemaker: No Hx Hypertension: Yes Hx Diabetes: Yes Hx Gastroesophageal Reflux: Yes Hx Renal Disease: Yes Hx MRSA: No Surgical History: appendectomy, cholecystectomy, Hysterectomy - Vaccination History Hx Tetanus, Diphtheria Vaccination: Yes Hx Influenza Vaccination: Yes Hx Pneumococcal Vaccination: No - Social History Hx Tobacco Use: No Hx Chewing Tobacco Use: No Hx Alcohol Use: No Hx Substance Use: No Hx Substance Use Treatment: No Hx Depression: No Hx Physical Abuse: No Hx Emotional Abuse: No Hx Suspected Abuse: No - Activities of Daily Living [facility]/Assisted Living (if applicable):: [facility] - Female History Patient : No Family Medical History - Family History Mother Family History: Unknown Living Status: Hx Family Hypertension: Yes - partents Hx Family Diabetes: Yes - parents Hx Family Cancer: Yes - lungs-dad Physical Exam - Physical Exam General Appearance: Alert, Comfortable, No apparent distress Eye Exam: bilateral normal Ears, Nose, Throat: hearing grossly normal, normal ENT inspection - poor dentition Neck: full range of motion, supple Respiratory: lungs clear, normal breath sounds, no respiratory distress, no accessory muscle use Cardiovascular/Chest: normal peripheral pulses, no edema, other - regular rate Peripheral Pulses: radial,right: 2+, radial,left: 2+ Gastrointestinal/Abdominal: non tender, soft, other - she does have significant ascites but is not tense and it is not painful. No palpable mass. No rebound or peritoneal signs. Rectal Exam: deferred Back Exam: normal inspection Extremity: normal range of motion, non-tender, normal inspection, normal capillary refill Neurologic: overhead cleaner II-XII nml as tested, alert, normal mood/affect, oriented x 3 Skin Exam: normal color Comments: Vital Signs - 24 hr 12/21/17 17:45 Temperature 97.4 F L Pulse Rate [ 86 Left Brachial] Respiratory 20 Rate Blood Pressure 129/77 [Left Arm] O2 Sat by Pulse 100 Oximetry Progress - Progress Progress: 12/21/17 18:03 the patient is a 67-year-old female [facility] to concern for her ascites. There is no clinical evidence of infection. The patient is not uncomfortable. She is not short of breath. At this point in time the risk of the paracentesis outweighs its benefits. Paracentesis will therefore not be performed at this time. She is receiving an extra dose of oral Lasix. She needs to keep her routine follow-up for her routine paracentesis. ER warnings were given. Family and patient's questions were answered. Departure - Departure Clinical Impression: Ascites of liver Disposition: Discharge to SNF Condition: Fair Departure Forms: ED Discharge - Pt. Copy, Patient Portal Self Enrollment Instructions: Fluid in the Belly (Ascites) (DC) Diet: other - low-salt diet Activity: increase activity as tolerated Referrals: KAIT LORENZO MD [Primary Care Provider] - 1-2 Weeks Additional Instructions: the patient is a 67-year-old female presenting [facility] to concern for her ascites. There is no clinical evidence of infection. The patient is not uncomfortable. She is not short of breath. At this point in time the risk of the paracentesis outweighs its benefits. Paracentesis will therefore not be performed at this time. She is receiving an extra dose of oral Lasix. She needs to keep her routine follow-up for her routine paracentesis. ER warnings were given. Family and patient's questions were answered.
== END 2017-12-21 18:15 ==
LOC: ER 17:34
DX: R18.8 Other ascites (principal); K72.90 Hepatic failure, unspecified without coma; E11.22 Type 2 diabetes mellitus with diabetic chronic kidney disease; I12.9 Hypertensive chronic kidney disease with stage 1 through stage 4 chronic kidney disease, or unspecified chronic kidney disease; N18.9 Chronic kidney disease, unspecified; K21.9 Gastro-esophageal reflux disease without esophagitis; Z90.49 Acquired absence of other specified parts of digestive tract; Z95.5 Presence of coronary angioplasty implant and graft; Z86.73 Personal history of transient ischemic attack (TIA), and cerebral infarction without residual deficits

== ENCOUNTER → 2018-02-13 | Outpatient (CLI) | payer MEDICARE | LOC: GRHH 12:15 | DX: K75.81 Nonalcoholic steatohepatitis (NASH) (principal); E11.40 Type 2 diabetes mellitus with diabetic neuropathy, unspecified ==

== ENCOUNTER → 2018-02-27 | Outpatient (CLI) | payer MEDICARE | LOC: GRHH 12:58 | PROVIDERS: ATTEND Family Medicine | DX: K75.81 Nonalcoholic steatohepatitis (NASH) (principal); M62.81 Muscle weakness (generalized); E11.40 Type 2 diabetes mellitus with diabetic neuropathy, unspecified ==

== ENCOUNTER → 2018-03-01 | Outpatient (CLI) | payer MEDICARE | LOC: GMAE 17:33 | PROVIDERS: ATTEND Family Medicine | DX: R41.9 Unspecified symptoms and signs involving cognitive functions and awareness (principal) ==